=== PATIENT | female | born 1945 | race Caucasian/White ===

== ENCOUNTER → 2019-04-30 | Day surgery (SDC) | payer MEDICARE ==
[2019-04-27 14:00] LABS: BASOPHILS % 0.7 % (0.0-1.0); EOSINOPHILS # (AUTO) 0.3 (0.0-0.4); EOSINOPHILS % 4.5 % (0.0-6.0); LYMPHOCYTES # (AUTO) 0.9 (1.0-3.2); LYMPHOCYTES % 15.5 % (18.0-39.1); MEAN CORPUSCULAR HGB CONC 33.3 g/dL (31-35); MEAN CORPUSCULAR VOLUME 86.9 fL (81-99); MONOCYTES # (AUTO) 0.7 (0.2-0.8); MONOCYTES % 11.2 % (4.4-11.3); NEUTROPHILS # (AUTO) 4.1 (2.1-6.9); NEUTROPHILS % 67.6 % (38.7-80.0); PLATELET COUNT 252 x10e3/uL (140-360); RED BLOOD COUNT 4.49 x10e6/uL (3.6-5.1); RED CELL DISTRIBUTION WIDTH 14.3 % (11.7-14.4)
[~2019-04-30] MED LIST: ALDACTONE25 MG PO; ALIGN4 MG PO; ASPIR 8181 MG PO; CALCIUM500 MG PO; DICYCLOMINE HCL20 MG PO; DYMISTA NASAL S23 GM PO; FENTANYL CITRATE/PF 100MCG/2 ML INJ ONE; HYDROCHLOROTHIA25 MG PO; MULTIMINERAL PO; MULTIVITAMIN PO; OMEPRAZOLE20 M1 PO; PAROXETINE HCL20 MG PO; PROPOFOL IV EMULSION 10 MG/ML 20 ML VIAL ONE; SIMVASTATIN40 MG PO; SINGULAIR10 MG PO; SPIRONOLACTONE50 MG PO; ZESTRIL20 MG PO
--- OUTSIDE RECORDS SUMMARY | 2019-04-30 06:23 | XMS REPORT ---
[facility] Address Unknown Phone Unavailable Care Team Providers Care [employer] Name Role Phone Unavailable Unavailable Payers Payer Name Policy Type Policy Number Effective Date Expiration Date Problems This patient has no known problems. Allergies, Adverse Reactions, Alerts Allergy Name Allergy Type Status Severity Reaction(s) Onset Date Inactive Date Treating Clinician Comments No Known Allergies DA Active U 2018-09-08 00:00:00 Medications This patient has no known medications. Results Test Description Test Time Test Comments Text Results Atomic Results Result Comments SURGICAL SPECIMENS 2019-01-19 07:35:00 RUN DATE: 01/19/19 [facility] *LIVE* PAGE 1 RUN TIME: 735 Specimen Inquiry RUN USER: INTERFACE PATIENT: DONITA COOPER LOC: ADAN U #: [id number] AGE/SX: 73/F ROOM: RE01/13/19[facility] DR: Dennis Lindo MD : 45 BED: DIS: STATUS: DEP [facility] TLOC: SPEC #: [id number] RECD: 01/14/19 [facility] RE #: [id number] TONY: 01/14/[address] [facility] [address]: Dennis Lindo MD ENTERED: 01/18/19 SP TYPE: SURG SPEC OTHR DR: Venkat Jacques MD ORDERED: GM LEVEL 4 CODES: [id number] - BREAST, NOS [place]: [place] [address] [place] [address] [email or web address] Dennis Lindo MD [address] [place] [address] PROCEDURES: GM LEVEL 4 (Incomplete) TISSUES: 1. BREAST, NOS - Breast, left, lumpectomy COMMENTS No residual infiltrating ductal carcinoma is seen. Prior biopsy site changes are identified. Clinical correlation is recommended. 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 GROSS AND MICROSCOPIC GROSS EXAMINATION: Received in formalin and labeled left breast lumpectomy specimen is a segment of breast tissue with sutures marking the orientation. A single suture stout superior, long suture stout the lateral and a double suture stout the deep. The specimen is inked as follows: Lateral-green; medial-blue; superior-red; inferior-orange; anterior- yellow; posterior-black. The specimen is bread loafed in a horizontal plane from superior to inferior and submitted in its entirety for microscopic examination in its entirety (A)-(L). CONTINUED ON NEXT PAGE RUN DATE: 01/19/19 [facility] *LIVE* PAGE 2 RUN TIME: 735 Specimen Inquiry RUN USER: INTERFACE SPEC #: [id number] PATIENT: DONITA COOPER #[id number] (Continued) GROSS AND MICROSCOPIC (Continued) MICROSCOPIC EXAMINATION: Sections reveal prior biopsy site changes, fibrocystic changes, and focal abnormal cells, measuring less than 0.1 cm in largest dimension. The tumor cells are 0.1 cm from prior excisional biopsy margin and 0.8 cm from the new margin. Margins are free of tumor. Immunostaining reveals that the abnormal cells are positive for high molecular weight cytokeratin and E-cadherin. Immunostaining with myosin heavy chain and p63 demonstrates myoepithelial cells. Also present is a focus of proliferation of ductal epithelial cells. Immunostaining reveals that the cells are positive for E-cadherin and with myoepithelial staining (p63). (When special stains have been reviewed, the appropriate positive/negative controls have been reviewed and are appropriately positive/negative). POST-OP DIAGNOSIS Breast cancer, short stitch-superior, long-lateral, double-deep REVIEWED BY: RD Signed SIGNATURE ON FILE Radha Ervin MD 01/19/19 0735 END OF REPORT COMPREHENSIVE METABOLIC PANEL 2019-01-13 13:16:00 SODIUM (test code=NA) 141 mEq/L 134-147 POTASSIUM (test code=K) 3.7 mEq/L 3.4-5.0 CHLORIDE (test code=CL) 106 mEq/L 100-108 CARBON DIOXIDE (test code=CO2) 31 mEq/L 21-33 ANION GAP (test code=GAP) 8 0-20 GLUCOSE (test code=GLU) 101 mg/dL 70-110 BLOOD UREA NITROGEN (test code=BUN) 19 mg/dL 7-18 GLOMERULAR FILTRATION RATE (test code=GFR) 61.4 70-80 Units of measure=ml/min/1.73 m2 CREATININE (test code=CREAT) 0.9 mg/dL 0.6-1.3 TOTAL PROTEIN (test code=PROT) 7.9 g/dL 6.4-8.2 ALBUMIN (test code=ALB) 3.80 g/dL 3.4-5.0 CALCIUM (test code=CA) 9.5 mg/dL 8.0-10.5 BILIRUBIN TOTAL (test code=BILT) 0.50 mg/dL 0.0-1.0 SGOT/AST (test code=AST) 34 IUnit/L 15-37 SGPT/ALT (test code=ALT) 34 IUnit/L 15-65 ALKALINE PHOSPHATASE TOTAL (test code=ALKP) 50 IUnit/L 20-125 COMPREHENSIVE METABOLIC [id number] 13:13:00* Test Item Value Reference Range Comments SODIUM (test code=NA) 141 mEq/L 134-147 POTASSIUM (test code=K) 3.7 mEq/L 3.4-5.0 CHLORIDE (test code=CL) 106 mEq/L 100-108 CARBON DIOXIDE (test code=CO2) 31 mEq/L 21-33 ANION GAP (test code=GAP) 8 0-20 GLUCOSE (test code=GLU) 101 mg/dL 70-110 BLOOD UREA NITROGEN (test code=BUN) 19 mg/dL 7-18 GLOMERULAR FILTRATION RATE (test code=GFR) 61.4 70-80 Units of measure=ml/min/1.73 m2 CREATININE (test code=CREAT) 0.9 mg/dL 0.6-1.3 TOTAL PROTEIN (test code=PROT) g/dL 6.4-8.2 ALBUMIN (test code=ALB) 3.80 g/dL 3.4-5.0 CALCIUM (test code=CA) 9.5 mg/dL 8.0-10.5 BILIRUBIN TOTAL (test code=BILT) mg/dL 0.0-1.0 SGOT/AST (test code=AST) 34 IUnit/L 15-37 SGPT/ALT (test code=ALT) 34 IUnit/L 15-65 ALKALINE PHOSPHATASE TOTAL (test code=ALKP) IUnit/L 20-125 CBC W/AUTO [id number] 12:42:00* Test Item Value Reference Range Comments WHITE BLOOD CELL (test code=WBC) 7.51 x10 3/uL 4.5-11.0 RED BLOOD CELL (test code=RBC) 4.25 x10 6/uL 3.54-5.02 HEMOGLOBIN (test code=HGB) 12.7 g/dL 11.0-15.0 HEMATOCRIT (test code=HCT) 39.8 % 33.0-45.0 MEAN CELL VOLUME (test code=MCV) 93.6 fL 81.0-99.0 MEAN CELL HGB (test code=MCH) 29.9 pg 27.0-33.0 MEAN CELL HGB CONCETRATION (test code=MCHC) 31.9 g/dL 33.0-37.0 RED CELL DISTRIBUTION WIDTH CV (test code=RDW) 14.3 % 11.5-14.5 RED CELL DISTRIBUTION WIDTH SD (test code=RDW-SD) 49.8 fL 37.0-54.0 PLATELET COUNT (test code=PLT) 347 x10 3/uL 150-400 MEAN PLATELET VOLUME (test code=MPV) 10.0 fL 7.0-9.0 NEUTROPHIL % (test code=NT%) 64.7 % 56.0-77.0 IMMATURE GRANULOCYTE % (test code=IG%) 0.4 % 0.0-2.0 LYMPHOCYTE % (test code=LY%) 16.9 % 14.0-32.0 MONOCYTE % (test code=MO%) 9.9 % 4.8-9.0 EOSINOPHIL % (test code=EO%) 7.3 % 0.3-3.7 BASOPHIL % (test code=BA%) 0.8 % 0.0-2.0 NUCLEATED RBC % (test code=NRBC%) 0.0 % 0-0 NEUTROPHIL # (test code=NT#) 4.86 x10 3/uL 2.0-7.6 IMMATURE GRANULOCYTE # (test code=IG#) 0.03 x10 3/uL 0.00-0.03 LYMPHOCYTE # (test code=LY#) 1.27 x10 3/uL 1.0-3.8 MONOCYTE # (test code=MO#) 0.74 x10 3/uL 0.1-0.8 EOSINOPHIL # (test code=EO#) 0.55 x10 3/uL 0.0-0.2 BASOPHIL # (test code=BA#) 0.06 x10 3/uL 0.0-0.2 NUCLEATED RBC # (test code=NRBC#) 0.00 x10 3/uL 0.0-0.1 MANUAL DIFF REQUIRED (test code=MDIFF) NO SURGICAL [id number] 06:44:00 RUN DATE: 12/31/18 [facility] *LIVE* PAGE 1 RUN TIME: 643 Specimen Inqui ry RUN USER: INTERFACE PATIENT: DONITA COOPER ACCT #: [id number] LOC: Grace U #: [id number] AGE/SX: 73/F ROOM: RE12/25/18REG DR: Dennis Lindo MD : 45 BED: DIS: STATUS: [facility]AKOV [facility] TLOC: SPEC #: [id number] RECD: 12/26/18 STATUS: SAMY REQ #: [id number] TONY: 12/26/[address] [facility] [address]: Dennis Lindo MD ENTERED: 12/31/18 SP TYPE: SURG SPEC OTHR DR: Venkat Jacques MD ORDERED: GM LEVEL 4 CODES: [id number] - BREAST, NOS [id number] - LYMPH NODE, NOS COPIES TO: [place] [address] [place] [address] [email or web address] Dennis Lindo MD [address] [place] [address] PROCEDURE S: GM LEVEL 4 (Incomplete) TISSUES: 1. LYMPH NODE, NOS - Lymph node, l eft sentinel, excision 2. BREAST, NOS - Breast, left, lumpectomy specime n, excis 3. BREAST, NOS - Breast, left superior margin, excision 4. BREAST, NOS - Breast, left, lateral margin, excision 5. SIRIA AST, NOS - Breast, left, upper outer margin, excisi FINAL DIAGNOSIS L ymph node, left sentinel, excision: No evidence of metastatic carcinoma seen (0/4). Breast, left, lumpectomy specimen, excision: Fibrocystic changes ( see microscopic examination). Breast, left superior, lateral, upper, ou ter margins (specimens #3-#5), excision: Fibrocystic changes. GROSS AND MICROSCOPIC FROZEN DIAGNOSIS: Lymph node, left sentinel, excision: No evidenc e of metastatic carcinoma seen (0/4). GROSS DESCRIPTION: Received fresh designated left axillary sentinel node CONTINUED ON NEXT PAGE RUN DATE: 12/31/18 [facility] *LIVE* PAGE 2 RUN TIME: 0644 Specimen Inquiry RUN USER: INTERFACE SPEC #: [id number] PATIENT: DONITA COOPER #[id number] (Continued) GROSS AND MICROSCOPIC (Con tinued) are 2 segments of yellow, soft, and erasmo tissue measuring 2.5 cm and 2.2 cm in largest dimension, respectively. Four lymph nodes are identified and submitted entirely as (A) for frozen diagnosis. Received and labeled left localized lumpectomy is a breast excisional biopsy specimen that measures 4.6 x 4.3 x 1 cm Orientation is provided with t he specimen. The surgical margins are inked as follows: superior blue; inf erior green; medial red; lateral yellow; deep black, and anterior orang e. The specimen is bread loafed and reveals yellow soft tissue. Entirel y submitted (B)-(E). Specimen #3, superior margin stitch on true margin is one segment of yellow soft tissue m easuring 6 x 4.3 x 0.8 cm with a suture on one side. The suture side is inked black. Entirely submitted (F)-(J). Specimen #4, lateral margin is one segment of yellow soft tissue measuring 3.9 x 2.8 x 0.6 cm with a suture on one side for new margin. The new margin is inked black. Entirely submitted (K)-(L). Specimen #5, upper outer ma rgin is one segment of yellow soft tissue measuring 4.5 x 3.7 x 0.9 cm with a suture on one side. The new margin is inked black. Entirely submitted (M)-(P). MICROSCOPIC EXAMINATION: The sentinel lymph node reveals no evidence of metastatic carcinoma on multiple step sections and on immunostained sections (pancytokeratin and vimentin) according to protocol. Specimen #2 reveals a karlos esthetic dermatologist and fibroc ystic changes. No ADH, DCIS, LCIS, or invasive carcinoma is identified. No definite prior biopsy site changes are seen. Specimens #3-#5 reveal fibroc ystic changes. No ADH, DCIS, LCIS, or invasive carcinoma is identified. * Note: Path Dx does not coincide with clinical impression, clinical correlation is necessary. POST-OP DIAGNOSIS Breast cancer PRE-OP DIAGNOSIS Breast cancer REVIEWED BY: DR Hartman CONTINUED ON NEXT PAGE RUN DATE: 12/31/18 [facility] *LIVE* PAGE 3 RUN TIME: 643 Specimen Inquiry RUN USER: INTERFACE SPEC #: [id number] PATIENT: DONITA COOPER #[id number] (Continu ed) Signed SIGNATURE ON FILE Radha Patel MD 12/31/18 0644 END OF REPORT - SENT NODE RAD TR [id number] 10:47:00 FAX: Venkat Guevara [phone] Davin: St: REG FAX: Dennis Almazan MD [phone] Name: DONITA COOPER [facility] : 1945 Age/S: 73/F [address] [place] [address] Unit #: [id number] Loc: [place] [address] Phys: Dennis Lindo MD Acct: [id number] Dis Date: Status: REG [facility] PHONE #: [phone] Exam Date: 12/25/2018 09 FAX #: [phone] Reason: LEFT BREAST CANCER EXAMS: CPT CODE: [id number] SENT NODE RAD TR INJ 10990 Nuclear medicine sentinel node study HISTORY: Left breast cancer. FINDINGS: The injection of 1 mCi of filtered sulfur colloid was performed in the left breast under sterile conditions and local anesthesia for sentinel lymph node identification. The injection was performed at 0916 hours. No imaging was acquired. SL: [id number] at 1047 Reported and signed by: João Yost M.D. CC: Venkat Puri MD; Dennis Lindo MD Technologist: Adalgisa Fulton RT(N)(CT)(PET) Trnscrd Date/Time/By: 12/25/2018 (1040) : By: [email or web address] Orig Print D/T: S: 12/25/2018 (6927) PAGE 1 Signed Report COMPREHENSIVE METABOLIC [id number] 18:21:00* Test Item Value Reference Range Comments SODIUM (test code=NA) 139 mEq/L 134-147 POTASSIUM (test code=K) 3.4 mEq/L 3.4-5.0 CHLORIDE (test code=CL) 102 mEq/L 100-108 CARBON DIOXIDE (test code=CO2) 28 mEq/L 21-33 ANION GAP (test code=GAP) 12 0-20 GLUCOSE (test code=GLU) 88 mg/dL 70-110 BLOOD UREA NITROGEN (test code=BUN) 20 mg/dL 7-18 GLOMERULAR FILTRATION RATE (test code=GFR) 61.4 70-80 Units of measure=ml/min/1.73 m2 CREATININE (test code=CREAT) 0.9 mg/dL 0.6-1.3 TOTAL PROTEIN (test code=PROT) 7.5 g/dL 6.4-8.2 ALBUMIN (test code=ALB) 3.50 g/dL 3.4-5.0 CALCIUM (test code=CA) 9.4 mg/dL 8.0-10.5 BILIRUBIN TOTAL (test code=BILT) 0.40 mg/dL 0.0-1.0 SGOT/AST (test code=AST) 19 IUnit/L 15-37 SGPT/ALT (test code=ALT) 24 IUnit/L 15-65 ALKALINE PHOSPHATASE TOTAL (test code=ALKP) 53 IUnit/L 20-125 COMPREHENSIVE METABOLIC [id number] 18:07:00* Test Item Value Reference Range Comments SODIUM (test code=NA) 139 mEq/L 134-147 POTASSIUM (test code=K) 3.4 mEq/L 3.4-5.0 CHLORIDE (test code=CL) 102 mEq/L 100-108 CARBON DIOXIDE (test code=CO2) 28 mEq/L 21-33 ANION GAP (test code=GAP) 12 0-20 GLUCOSE (test code=GLU) 88 mg/dL 70-110 BLOOD UREA NITROGEN (test code=BUN) 20 mg/dL 7-18 GLOMERULAR FILTRATION RATE (test code=GFR) 61.4 70-80 Units of measure=ml/min/1.73 m2 CREATININE (test code=CREAT) 0.9 mg/dL 0.6-1.3 TOTAL PROTEIN (test code=PROT) g/dL 6.4-8.2 ALBUMIN (test code=ALB) 3.50 g/dL 3.4-5.0 CALCIUM (test code=CA) 9.4 mg/dL 8.0-10.5 BILIRUBIN TOTAL (test code=BILT) mg/dL 0.0-1.0 SGOT/AST (test code=AST) IUnit/L 15-37 SGPT/ALT (test code=ALT) IUnit/L 15-65 ALKALINE PHOSPHATASE TOTAL (test code=ALKP) IUnit/L 20-125 CBC W/AUTO [id number] 17:27:00* Test Item Value Reference Range Comments WHITE BLOOD CELL (test code=WBC) 8.72 x10 3/uL 4.5-11.0 RED BLOOD CELL (test code=RBC) 3.71 x10 6/uL 3.54-5.02 HEMOGLOBIN (test code=HGB) 11.2 g/dL 11.0-15.0 HEMATOCRIT (test code=HCT) 35.0 % 33.0-45.0 MEAN CELL VOLUME (test code=MCV) 94.3 fL 81.0-99.0 MEAN CELL HGB (test code=MCH) 30.2 pg 27.0-33.0 MEAN CELL HGB CONCETRATION (test code=MCHC) 32.0 g/dL 33.0-37.0 RED CELL DISTRIBUTION WIDTH CV (test code=RDW) 16.9 % 11.5-14.5 RED CELL DISTRIBUTION WIDTH SD (test code=RDW-SD) 58.1 fL 37.0-54.0 PLATELET COUNT (test code=PLT) 403 x10 3/uL 150-400 MEAN PLATELET VOLUME (test code=MPV) 9.8 fL 7.0-9.0 NEUTROPHIL % (test code=NT%) 58.2 % 56.0-77.0 IMMATURE GRANULOCYTE % (test code=IG%) 0.8 % 0.0-2.0 LYMPHOCYTE % (test code=LY%) 15.4 % 14.0-32.0 MONOCYTE % (test code=MO%) 11.0 % 4.8-9.0 EOSINOPHIL % (test code=EO%) 13.6 % 0.3-3.7 BASOPHIL % (test code=BA%) 1.0 % 0.0-2.0 NUCLEATED RBC % (test code=NRBC%) 0.0 % 0-0 NEUTROPHIL # (test code=NT#) 5.07 x10 3/uL 2.0-7.6 IMMATURE GRANULOCYTE # (test code=IG#) 0.07 x10 3/uL 0.00-0.03 LYMPHOCYTE # (test code=LY#) 1.34 x10 3/uL 1.0-3.8 MONOCYTE # (test code=MO#) 0.96 x10 3/uL 0.1-0.8 EOSINOPHIL # (test code=EO#) 1.19 x10 3/uL 0.0-0.2 BASOPHIL # (test code=BA#) 0.09 x10 3/uL 0.0-0.2 NUCLEATED RBC # (test code=NRBC#) 0.00 x10 3/uL 0.0-0.1 MANUAL DIFF REQUIRED (test code=MDIFF) NO - XR CHEST 2 [id number] 16:47:00 FAX: Venkat Guevara [phone] Davin: St: PRE FAX: Dennis Almazan MD [phone] Name: DONITA COOPER [facility] : 1945 Age/S: 73/F [address] [place] [address] Unit #: [id number] [facility] [place] [address] Phys: Dennis Lindo MD Acct: [id number] Dis Date: Status: PRE [facility] [place] [facility] PHONE #: [phone] Exam Date: 12/22/2018 1644 FAX #: [phone] Reason: WIRE LOC, SN BIOPSY OF BREAST EXAMS: CPT CODE: [id number] XR CHEST 2 V 28944 Clinical Indication: WIRE LOC, SN BIOPSY OF BREAST Comparison: 09/10/2018 FINDINGS: The frontal and lateral chest radiographs show normal lung volumes. No interstitial or airspace opacities are seen. No pleural effusions are present. No pneumothorax is seen. The heart is normal in size. The trachea is midline. The tip of the right sided Port-A-Cath is in the SVC. A radiopaque ring projects over the epigastric. There are no clinically significant osseous abnormalities noted. IMPRESSION: No chest radiographic evidence of acute cardiopulmonary disease. SL: [id number] at 3716 Reported and signed by: Ion Ford M.D. CC: Venkat Puri MD; Dennis Lindo MD Technologist: RT Topher(Alex)(Juan) Trnscrd Date/Time/By: 12/22/2018 (8300) : By: [email or web address] Orig Print D/T: S: 12/22/2018 (5548) PAGE 1 Signed Report SURGICAL [id number] 08:09:00 RUN DATE: 09/12/18 [facility] *LIVE* PAGE 1 RUN TIME: 808 Specimen Inqui ry RUN USER: INTERFACE PATIENT: DONITA COOPER ACCT #: [id number] LOC: JACINDA Martinez #: [id number] AGE/SX: 73/F ROOM: RE09/08/18REG DR: Dennis Lindo MD : 45 BED: DIS: STATUS: PRE REF TLOC: SPEC #: [id number] RECD: 09/09/18 STATUS: [facility]Y REQ #: [id number] TONY: 09/09/[address] [facility] [address]: Dennis Lindo MD ENTERED: 09/10/18 SP TYPE: SURG SPEC OTHR DR: Sheila Nano ashley or Family PhysicianORDERED: LEVEL 4 CODES: [id number] - LYMPH NODE, NOS COPIES TO: No Primary or Family Physician Dennis Lindo MD [address] [place] [address] PROCEDURES: GM LEVEL 4 (Incomplete) TISSUES: 1. LYMPH NODE, NOS - Lymph node, left axilla, core bx. FINAL DIAGNOSIS Lymph node, left axilla, core bx.: Lymph node tissue showi ng reactive changes; no evidence of metastatic carcinoma seen. GROSS AND MICROSCOPIC GROSS EXAMINATION: Location: Lymph node, left axilla, core bx. Dimensions and appearance: 0.6 x 0.5 x 0.1 cm, fibrofatty. Sections: Entirely submitted. Received in formalin are the above designated biopsies. They are composed of yellow-white fibrofatty tissue. They are submitted for microscopic examination as indicated above. MICROSCOPIC EXAMINATION: Sections reveal small fragments of lymph node ti ssue showing reactive changes. No evidence of metastatic carcinoma is seen . P OST-OP DIAGNOSIS ULTRACLIP-ribbon CONTIN UED ON NEXT PAGE RUN DATE: 09/12/18 [facility] *LIVE* PAGE 2 RUN TIME: 808 Specimen Inquiry RUN USER: INTERFACE SPEC #: [id number] [facility]: DONITA COOPER #[id number] (Continued) PRE-OP DIAGNOSIS Lymph node REVIEWED BY: XR S igned SIGNATURE ON FILE Radha Ervin MD 09/12/18 0809 END OF REPORT - XR FLUOROSCOPY 0-60 [id number] 12:13:00 FAX: Venkat Gueavra [phone] Davin: St: REG FAX: Bhaskar [place],In Radha DARDEN [phone] Name: DONITA COOPER [facility] [place] : 1945 Age/S: 73/F [address] [place] [address] Unit #: [id number] Loc: [place] [address] Phys: Preet,Bianca Garcia MD Acct: [id number] Dis Date: Status: REG [facility] [facility] PHONE #: [phone] Exam Date: 09/10/2018909 FAX #: [phone] Reason: LEFT BREAST CANCER EXAMS: CPT CODE: [id number] XR FLUOROSCOPY 0-60 MIN 70250 XR FLUOROSCOPY 0-60 MIN.: Fluoroscopic guidance was provided by the radiology department for intraoperative procedure. Any images obtained will be interpreted by the performing physician. at 1213 Reported and signed by: Juan J Parish M.D. CC: Venkat Puri MD; In Radha Yo Technologist: RT Raul(R) Trnscrd Date/Time/By: 09/10/2018 (2523) : By: [email or web address] Orig Print D/T: S: 09/10/2018 (9025) PAGE 1 Signed Report - XR CHEST 1 [id number] 11:54:00 FAX: Venkat Guevara [phone] Davin: St: REG FAX: Bhaskar [place],In Radha DARDEN [phone] Name: DONITA COOPER : 1945 Age/S: 73/F [address] [place] [address] Unit #: [id number] Loc: [place] [address] Phys: Yo,In Radha DARDEN Acct: [id number] Dis Date: Status: REG SDC PHONE #: [phone] Exam Date: 09/10/2018 1116 FAX #: [phone] Reason: port placement EXAMS: CPT CODE: [id number] XR CHEST 1 V 97061 CHEST, SINGLE VIEW HISTORY: Port-A-Cath placement Comparison made to prior chest x-ray dated 09/08/18. FINDINGS: The lungs are clear. The heart size and pulmonary vas cularity are within normal limits. No pneumothorax. Right IJ chest port position is adequate. IMPRESSION: Adequa te positioning of right IJ central venous port, no pneumothorax. Otherw ise stable. SL:01 at 1 154 Reported and signed by: Ant guillaume M.D. CC: Venkat Puri MD; In Radha Oviedo Technologist: RT Kulwinder(Sara vicente Date/Time/By: 09/10/2018 (1154) : By: Roz Orig Print D/T: S: 09/10/2018 (3008) PAGE 1 Signed Report DRUGS OF ABUSE SCREEN [id number] 13:05:00 * Test Item Value Reference Range Comments URN COCAINE (test code=COCAURN) NEGATIVE NEGATIVE URN CANNABINOIDS (test code=CANNABURN) NEGATIVE NEGATIVE URN AMPHETAMINE (test code=AMPHETURN) NEGATIVE NEGATIVE URN BARBITURATE (test code=BARBITURN) NEGATIVE NEGATIVE URN BENZODIAZEPINE (test code=BENZOURN) NEGATIVE NEGATIVE Cut-off value:200 ng/mL URN OPIATES (test code=OPIATURN) NEGATIVE NEGATIVE Cut-off value:2000 ng/mL URN PHENCYCLIDINE (PCP) (test code=PHENCURN) NEGATIVE NEGATIVE Cutoffs:Barbiturates 200 ng/mLBenzodiazepines 200 ng/mLTHC Cannabinoids 50 ng/mLOpiates(Morphine) 2000 ng/mLAmphetamine 1000 ng/mLCocaine 300 ng/mLPCP phencyclidine 25 ng/mL Unconfirmed screening results shouldnot be used for non-medical purposes. COMPREHENSIVE METABOLIC [id number] 12:54:00* Test Item Value Reference Range Comments SODIUM (test code=NA) 136 mEq/L 134-147 POTASSIUM (test code=K) 3.4 mEq/L 3.4-5.0 CHLORIDE (test code=CL) 100 mEq/L 100-108 CARBON DIOXIDE (test code=CO2) 31 mEq/L 21-33 ANION GAP (test code=GAP) 8 0-20 GLUCOSE (test code=GLU) 99 mg/dL 70-110 BLOOD UREA NITROGEN (test code=BUN) 14 mg/dL 7-18 GLOMERULAR FILTRATION RATE (test code=GFR) 70.3 70-80 Units of measure=ml/min/1.73 m2 CREATININE (test code=CREAT) 0.8 mg/dL 0.6-1.3 TOTAL PROTEIN (test code=PROT) 8.2 g/dL 6.4-8.2 ALBUMIN (test code=ALB) 4.00 g/dL 3.4-5.0 CALCIUM (test code=CA) 9.3 mg/dL 8.0-10.5 BILIRUBIN TOTAL (test code=BILT) 0.40 mg/dL 0.0-1.0 SGOT/AST (test code=AST) 22 IUnit/L 15-37 SGPT/ALT (test code=ALT) 24 IUnit/L 15-65 ALKALINE PHOSPHATASE TOTAL (test code=ALKP) 56 IUnit/L 20-125 COMPREHENSIVE METABOLIC [id number] 12:52:00* Test Item Value Reference Range Comments SODIUM (test code=NA) 136 mEq/L 134-147 POTASSIUM (test code=K) 3.4 mEq/L 3.4-5.0 CHLORIDE (test code=CL) 100 mEq/L 100-108 CARBON DIOXIDE (test code=CO2) 31 mEq/L 21-33 ANION GAP (test code=GAP) 8 0-20 GLUCOSE (test code=GLU) 99 mg/dL 70-110 BLOOD UREA NITROGEN (test code=BUN) 14 mg/dL 7-18 GLOMERULAR FILTRATION RATE (test code=GFR) 70.3 70-80 Units of measure=ml/min/1.73 m2 CREATININE (test code=CREAT) 0.8 mg/dL 0.6-1.3 TOTAL PROTEIN (test code=PROT) g/dL 6.4-8.2 ALBUMIN (test code=ALB) 4.00 g/dL 3.4-5.0 CALCIUM (test code=CA) 9.3 mg/dL 8.0-10.5 BILIRUBIN TOTAL (test code=BILT) mg/dL 0.0-1.0 SGOT/AST (test code=AST) 22 IUnit/L 15-37 SGPT/ALT (test code=ALT) 24 IUnit/L 15-65 ALKALINE PHOSPHATASE TOTAL (test code=ALKP) IUnit/L 20-125 - XR CHEST 2 [id number] 12:34:00 FAX: Venkat Guevara [phone] Davin: St: PRE FAX: Bianca Yoon MD [phone] Name: DONITA COOPER [facility] : 1945 Age/S: 73/F [address] [place] [address] Unit #: [id number] Loc: [place] [address] Phys: Bianca Oviedo MD Acct: [id number] Dis Date: Status: PRE [facility] [place] PHONE #: [phone] Exam Date: 09/08/2018 1234 FAX #: [phone] Reason: PORT PLACEMENT EXAMS: CPT CODE: [id number] XR CHEST 2 V 30653 CHEST RADIOGRAPHS - PA AND LATERAL: COMPARISON: None CLINICAL HISTORY: PORT PLACEMENT The cardiopericardial silhouette is within normal limits. No acute infiltrate is present. There is a 5 mm calcified granuloma in the right lower lobe. A oval metallic ringlike device is present in the left upper quadrant of the abdomen near the level of the GE junction. No vascular congestion or pneumothorax. IMPRESSION: No acute pulmonary abnormality. at 1234 Reported and signed by: aWldo Ray M.D. CC: Venkat Puri MD; [facility] Technologist: RT Aminata(Alex) Trnscrd Date/Time/By: 09/08/2018 (123) : By: [email or web address] Orig Print D/T: S: 09/08/2018 (6216) PAGE 1 Signed Report CBC W/AUTO [id number] 12:31:00* Test Item Value Reference Range Comments WHITE BLOOD CELL (test code=WBC) 9.47 x10 3/uL 4.5-11.0 RED BLOOD CELL (test code=RBC) 4.45 x10 6/uL 3.54-5.02 HEMOGLOBIN (test code=HGB) 12.9 g/dL 11.0-15.0 HEMATOCRIT (test code=HCT) 40.1 % 33.0-45.0 MEAN CELL VOLUME (test code=MCV) 90.1 fL 81.0-99.0 MEAN CELL HGB (test code=MCH) 29.0 pg 27.0-33.0 MEAN CELL HGB CONCETRATION (test code=MCHC) 32.2 g/dL 33.0-37.0 RED CELL DISTRIBUTION WIDTH CV (test code=RDW) 13.2 % 11.5-14.5 RED CELL DISTRIBUTION WIDTH SD (test code=RDW-SD) 43.0 fL 37.0-54.0 PLATELET COUNT (test code=PLT) 299 x10 3/uL 150-400 MEAN PLATELET VOLUME (test code=MPV) 10.1 fL 7.0-9.0 NEUTROPHIL % (test code=NT%) 66.7 % 56.0-77.0 IMMATURE GRANULOCYTE % (test code=IG%) 0.7 % 0.0-2.0 LYMPHOCYTE % (test code=LY%) 22.3 % 14.0-32.0 MONOCYTE % (test code=MO%) 7.7 % 4.8-9.0 EOSINOPHIL % (test code=EO%) 2.1 % 0.3-3.7 BASOPHIL % (test code=BA%) 0.5 % 0.0-2.0 NUCLEATED RBC % (test code=NRBC%) 0.0 % 0-0 NEUTROPHIL # (test code=NT#) 6.31 x10 3/uL 2.0-7.6 IMMATURE GRANULOCYTE # (test code=IG#) 0.07 x10 3/uL 0.00-0.03 LYMPHOCYTE # (test code=LY#) 2.11 x10 3/uL 1.0-3.8 MONOCYTE # (test code=MO#) 0.73 x10 3/uL 0.1-0.8 EOSINOPHIL # (test code=EO#) 0.20 x10 3/uL 0.0-0.2 BASOPHIL # (test code=BA#) 0.05 x10 3/uL 0.0-0.2 NUCLEATED RBC # (test code=NRBC#) 0.00 x10 3/uL 0.0-0.1 MANUAL DIFF REQUIRED (test code=MDIFF) NO BREAST ULTRASOUND CORE BIOPSY [id number] 16:48:41- BREAST ULTRASOUND CORE BIOPSY LEFTULTRASOUND GUIDED BIOPSY LEFT BREAST WITH MARKING DEVICE INSERTED: 08/01/2018CLINICAL: Ultrasound biopsy, left breast. Comparison is made to exams dated 07/23/2018 ultrasound and 07/23/2018 mammogram - [facility]-. An ultrasound guided biopsy using real-time ultrasound was performed for the 1.3 cm mass located in the left breast at 11 o'clock, 6 cm from the nipple. The skin was prepped in the usual manner. Local anesthetic was administered to the access site. A 14 gauge biopsy needle was placed adjacent to the abnormality under ultrasound guidance. Once the needle was documented to be in the correct location, multiple specimens were obtained using a BARD biopsy device. A clip was inserted into the biopsy cavity. The specimens were sent to the laboratory for pathological analysis. IMPRESSION: ULTRASOUND GUIDED BIOPSY MALIGNANT Ultrasound guided biopsy of the 1.3 cm mass in the left breast at 11 o'clock, 6 cm from the nipple, was successful with no apparent post procedure complications. PATHOLOGY INDICATES:Malignant invasive ductal carcinoma. Susanna Merida M.D. dm/:08/06/2018 16:48:41 Entry: - 08/07/2018 06:48:26Imaging Technologist: Yoli Madden FW, [facility]-DIAG MAMM LEFT CAD [id number] 09:38:54 - DIAG MAMM LEFT CAD DIGITALUNILATERAL LEFT DIGITAL DIAGNOSTIC MAMMOGRAM WITH CAD POST-PROCEDURE IMAGING FOR MARKER PLACEMENT: 08/01/2018CLINICAL: Post clip placement. Current mammographic images were evaluated by either a [employer] M-Vu or a [employer] ImageNegevtechcker CAD (computer aided detection system). Comparison is made to exams dated 07/21/2018 mammogram, 06/24/2017 mammogram, and [facility] There are scattered fibroglandular tissues in the left breast. There is a marker clip in the appropriate position in the left breast at 11 o'clock. This marker clip placement is at the biopsy site. IMPRESSION: POST PROCEDURE IMAGING FOR MARKER PLACEMENTThere was a successful marker clip placement in the left breast. Susanna Merida M.D. dm/:08/01/2018 09:38:54 Ssn/Ssbn Weapons Equipment Operator: Sobeida Booker FW, [facility]-Mammogram BI-RADS: Post- procedure mammogram for marker placementDIAG MAMM RIGHT RADHAMES CAD DIGITAL 2018-07-23 16:15:46 - DIAG MAMM RIGHT RADHAMES CAD DIGITALUNILATERAL RIGHT DIGITAL DIAGNOSTIC MAMMOGRAM 3D/2D WITH CAD: 07/23/2018CLINICAL: Recall from screening. Digital breast tomosynthesis was performed in addition to routine CC and MLO views. Current mammographic images were evaluated by either a [employer] M-Vu or a [employer] CAD (computer aided detection system). Comparison is made to exams dated 07/21/2018 mammogram, 06/24/2017 mammogram, and [facility]03/[facility]. There are scattered fibroglandular tissues in the right breast. Previously described focal asymmetry does not persist on additional spot compression views consistent with superimposition of breast tissue. No suspicious mass, architectural distortion, malignant type calcification, or lymph node abnormality detected in the right breast. IMPRESSION: INCOMPLETE ASSESSMENT: ADDITIONAL IMAGING EVALUATION RECOMMENDEDThere is no mammographic evidence of malignancy in the right breast. Targeted left breast ultrasound for left breast mass and bilateral survey ultrasound to follow.Luke Jimenez M.D. ss/:07/23/2018 16:15:46 Entry: - 07/24/2018 12:02:34Imaging Technologist: Sobeida LANE, [facility] BI-RADS: 0 IndeterminateBREAST ULTRASOUND BILATERAL 2018-07-23 16:05:00- BREAST ULTRASOUND BILATERALULTRASOUND OF BOTH BREASTS: 07/23/2018Comparison is made to exams dated 07/21/2018 mammogram, 06/24/2017 mammogram, and 05/03/2016 [facility]. Color flow and real-time ultrasound of both breasts were performed. Cruz scale images of the real-time examination were reviewed. The breast tissue has homogenous fatty background echotexture. Targeted left breast ultrasound demonstrates a solid mass that measures 13 x 10 x 11 mm at 11 o'clock, 6 cm from nipple, correlating with the mammographic mass. Characteristics include oval shape, irregular margins, parallel orientation, posterior acoustic enhancement, no internal vascularity. A simple cyst is noted in the right breast at 12 o'clock, 4 cm from the nipple. The rest of the bilateral survey ultrasound is negative. Atleast two left axillary lymph nodes with asymmetrically thickened cortex in the left axilla is identified. No right axillary lymphadenopathy.IMPRESSION: HIGHLY SUGGESTIVE OF MALIGNANCY - FOLLOW-UP RECOMMENDED1. Solid hypoechoic mass in the left breast at 11 o'clock. Findings are highly concerning for malignancy, BI-RADS 5. Ultrasound guided core biopsy is recommended at this time.2. Left axillary lymph nodes with asymmetrically thickened cortex. BI- RADS 4C. Ultrasound guided core biopsy is recommended at this time.Luke Jimenez M.D. ss/:07/23/2018 16:05:00 Entry: [facility] 07/24/2018 12:03:49Imaging Technologist: Sobeida LANE, [facility]letter sent: BIRADS 4/5 Biopsy Ultrasound BI-RADS: 5 Highly suggestive of malignancySCR MAMM BILATERAL RADHAMES CAD [id number] 16:13:23 - SCR MAMM BILATERAL RADHAMES CAD DIGITALBILATERAL DIGITAL SCREENING MAMMOGRAM 3D/2D WITH CAD: 07/21/2018CLINICAL: Asymptomatic. Digital breast tomosynthesis was performed in addition to routine CC and MLO views. Current mammographic images were evaluated by either a [employer] M-Vu or a [employer] ImageChecker CAD (computer aided detection system). Comparison is made to exams dated 06/24/2017 mammogram, 05/03/2016 mammogram, and 05/02/2015 mammogram - [facility]. There are scattered fibroglandular tissues in both breasts. A 12 mm obscured margin equal density mass at 11/12 o'clock, approximately 6 cm from the nipple, in the left breast. A 4 mm focal asymmetry in the right breast at 12 o'clock, approximately 5 cm from the nipple, appears possibly stable since prior mammograms.IMPRESSION: INCOMPLETE ASSESSMENT: ADDITIONAL IMAGING EVALUATION RECOMMENDED1. A 12 mm obscured margin equal density mass at 11/12 o'clock, approximately 6 cm from the nipple, in the left breast. Ultrasound is recommended at this time.2. A 4 mm focal asymmetry in the right breast at 12 o'clock, approximately 5 cm from the nipple, appears possibly stable since prior mammograms when accounting for diff erences in technique. At this time, spot compression radhames synthesis and possibl e ultrasound is recommended.Luke Jimenez M.D. ss/:07/21/2018 16:13: 23 Ssn/Ssbn Weapons Equipment Operator: Sobeida LANE, [facility]FWletter sent: Additional Imaging Mammogram BI-RADS: 0 Indeterminate
--- OUTSIDE RECORDS SUMMARY | 2019-04-30 06:23 | XMS REPORT | Encounter Summary ---
Author Organization Unknown Address [address] [place] [address] Phone [phone] Care Team Providers Care Private Branch Exchange Installer Name Role Phone Dr. Venkat Lynch 3 [phone] Jhony Green 62 [phone] Alexis Malhotra MD 104 [phone] Michelle Dickerson MD 105 [phone] Jean Varela MD 107 [phone] Patty Gil 110 [phone] [facility] 111 [phone] Wang Valdez MD (Endocrinology) 119 [phone] Jimmy Allred MD 130 [phone] Reason for Visit Hypertensive disorder; Depressive disorder; Hyperlipidemia Instructions 1. Hyperlipidemia high cholesterol: care instructions simvastatin 40 mg tablet CMP, serum or plasma lipid panel, serum 2. Hypertensive disorder hydrochlorothiazide 25 mg tablet CBC w/ auto diff 3. Major depressive disorder paroxetine 20 mg tablet 4. Senile purpura 5. Screening for malignant neoplasm of breast MAMMO, screening, digital, bilateral 6. Body mass index 25-29 - overweight learning about healthy weight Discussion Note: None recorded. Plan of Care Reminders Provider Appointments Return to Office on or around 01/04/2019 Venkat Puri MD Lab CMP, Serum or Plasma 07/08/[address] [facility] Lipid Panel, Serum 07/08/[address] [facility] CBC W/ Auto Diff 07/08/[address] [facility] Laboratory Referral None recorded. Procedures None recorded. Surgeries None recorded. Imaging MAMMO, Screening, Digital, Bilateral 07/08/2018 [facility] Medications Name Start Date Asmanex Twisthaler 220 mcg (120 doses) breath activated Inhale 2 puffs twice a day by inhalation route. Aspir-81 QD Calcium 500 3 gummies daily dicyclomine 20 mg tablet Take 1 tablet twice a day by oral route for 90 days. Dymista 137 mcg-50 mcg/spray nasal spray 1 spray each nostril twice a day hydrochlorothiazide 25 mg tablet TAKE 1 TABLET DAILY DIRECTED hydrocodone 5 mg-acetaminophen 325 mg tablet as needed (for knee) montelukast 10 mg tablet Take 1 tablet every day by oral route for 90 days. Multivitamin 50 Plus tablet Take 1 tablet every day by oral route. paroxetine 20 mg tablet TAKE 1 TABLET DAILY DIRECTED ProAir HFA 90 mcg/actuation aerosol inhaler 2 puffs qid as needed simvastatin 40 mg tablet TAKE 1 TABLET DAILY spironolactone 50 mg tablet Take 1 tablet every day by oral route for 90 days. Medications Administered None recorded. Vitals Height Weight BMI Blood Pressure 5 ft 6.6 in 179 lbs 28.4 kg/m2 124/76 mm[Hg] Lab Results None recorded. Allergies Code Code System Name Reaction Severity Status Onset NKDA Problems Name Status Onset Date Source Hypertensive Disorder Active 03/05/2016 Anxiety Active 08/09/2016 Depressive Disorder Active 08/09/2016 Asthma Active 08/09/2016 Alopecia Active 08/09/2016 Hyperlipidemia Active Procedures Date Name Performed by 02/15/2018 Esophageal Hiatus Hernia Repair Information not available 06/17/2017 Orthopedic Surgery Information not available 06/17/1976 Hysterectomy (Partial) Information not available 06/17/1974 Tubal Ligation Information not available 07/08/2018 MAMMO, Screening, Digital, Bilateral [facility] [address] [place] [address] (Work Place) Vaccine List Vaccine Type influenza, injectable, quadrivalent 02/15/2015 influenza, unspecified formulation 02/15/2018 pneumococcal conjugate PCV 13 01/03/20170.5 mL pneumococcal polysaccharide PPV23 01/16/20180.5 mL pneumococcal, unspecified formulation 06/17/2005 zoster 06/17/2009 zoster subunit 11/29/2017 04/17/2018 Social History Smoking Status Never Smoker Past Encounters 07/08/2018 Hyperlipidemia; Hypertensive Disorder; Major Depressive Disorder; Senile Purpura; Screening for Malignant Neoplasm of Breast; Body Mass Index 25-29 - Overweight Venkat Puri MD: [address] [place] [address], Ph. History of Present Illness Note:F/u on chronic conditions. Needs refill in meds. Compliant with meds. Non compliant with diet or exercise. BPs at home 120s/80s. No side effects with meds. No new symptoms. Denies restlessness, nervousness, sadness, suicidal/homicidal thoughts. Review of Systems Comprehensive General Adult ROS Reported By: Patient Constitutional: Constitutional: no fever Eyes: Eyes: no vision change ENMT: Ears: no ear pain. Nose: no sinus problems. Mouth/Throat: no sore throat Cardiovascular: Cardiovascular: no chest pain, no palpitations, no lightheadedness Respiratory: Respiratory: no cough, no wheezing, no shortness of breath Gastrointestinal: Gastrointestinal: no abdominal pain, no nausea, no vomiting, no constipation, no diarrhea Musculoskeletal: Musculoskeletal: no muscle aches, no muscle weakness, no swelling in the extremities Integumentary: Skin: no rashes Neurologic: Neurologic: no loss of consciousness, no headaches Psychiatric: Psych: no depression, no alcohol abuse, no anxiety, no suicidal thoughts Endocrine: Endocrine: no fatigue Physical Exam General Adult Exam (male) Reported By: Patient Constitutional: General Appearance: healthy-appearing, overweight. Level of Distress: NAD. Ambulation: ambulating normally Psychiatric: Insight: good judgement. Mental Status: active and alert, normal mood, normal affect. Orientation: to time, to place, to person. Memory: recent memory normal, remote memory normal Eyes: Lids and Conjunctivae: non-injected, no discharge. EOM: EOMI ENMT: Ears: TMs clear. Nose: no sinus tenderness. Lips, Teeth, and Gums: no mouth or lip ulcers. Oropharynx: moist mucous membranes Neck: Neck: supple, trachea midline. Thyroid: no enlargement, non-tender Lungs: Auscultation: breath sounds normal Cardiovascular: Heart Auscultation: RRR, normal S1, normal S2, no murmurs. Neck vessels: no carotid bruits. Pulses including femoral / pedal: normal throughout Abdomen: Inspection and Palpation: soft, non-distended, no tenderness, no guarding Musculoskeletal:: Motor Strength and Tone: normal, normal tone. Joints, Bones, and Muscles: normal movement of all extremities, no contractures, no bony abnormalities, no malalignment, no tenderness. Extremities: no edema Neurologic: Gait and Station: normal gait. Cranial Nerves: grossly intact. Coordination and Cerebellum: no tremor Skin: Inspection and palpation: ; ecchymoses in forearms
--- OUTSIDE RECORDS SUMMARY | 2019-04-30 06:24 | XMS REPORT | Encounter Summary ---
Author Organization Unknown Address [address] [place] [address] Phone [phone] Care Team Providers Care Clothes Ironer Name Role Phone Dr. Venkat Lynch 3 [phone] Jhony Green 62 [phone] Dirk Lindo MD 102 [phone] Alexis Malhotra MD 104 [phone] Michelle Dickerson MD 105 [phone] Jean Varela MD 107 [phone] [facility] 111 [phone] Wang Valdez MD (Endocrinology) 119 [phone] Jimmy Allred MD 130 [phone] Timoteo Ribera MD 197 [phone] Reason for Visit AWV Annual Wellness Visit Female (VFP); Annual Alcohol Misuse Screening Instructions 1. Adult health examination 2. Depression screening 3. Alcohol consumption screening learning about alcohol misuse 4. Body mass index 25-29 - overweight learning about healthy weight 5. 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 Hyperlipidemia high cholesterol: care instructions CMP, serum or plasma lipid panel, serum 8. Hypertensive disorder 9. Major depressive disorder 10. Loss of hair Discussion Note: None recorded. Plan of Care Reminders Provider Appointments Est Patient 04/30/2019 9:00AM Venkat Puri MD Lab CMP, Serum or Plasma 01/29/2019 [facility] Laboratory Lipid Panel, Serum 01/29/2019 [facility] Laboratory Referral None recorded. Procedures None recorded. Surgeries None recorded. Imaging None recorded. Medications Name Start Date QD Calcium 500 3 gummies daily gabapentin 300 mg capsule Take 1 capsule 3 times a day by oral route. hydrochlorothiazide 25 mg tablet TAKE 1 TABLET DAILY DIRECTED hydrocodone 5 mg-acetaminophen 325 mg tablet as needed (for knee) montelukast 10 mg tablet Take 1 tablet every day by oral route for 90 days. Multivitamin 50 Plus tablet Take 1 tablet every day by oral route. paroxetine 20 mg tablet TAKE 1 TABLET DAILY DIRECTED simvastatin 40 mg tablet TAKE 1 TABLET DAILY spironolactone 50 mg tablet Take 1 tablet every day by oral route for 90 days. Medications Administered None recorded. Vitals Height Weight BMI Blood Pressure 5 ft 6.6 in 181.6 lbs 28.8 kg/m2 112/72 mm[Hg] Lab Results None recorded. Allergies Code Code System Name Reaction Severity Status Onset NKDA Problems Name Status Onset Date Source Hypertensive Disorder Active 03/05/2016 Anxiety Active 08/09/2016 Depressive Disorder Active 08/09/2016 Asthma Active 08/09/2016 Alopecia Active 08/09/2016 Neoplasm of Breast Active 01/29/2019 Hyperlipidemia Active Procedures Date Name Performed by 02/15/2018 Esophageal Hiatus Hernia Repair Information not available 06/17/2017 Orthopedic Surgery Information not available 06/17/1976 Hysterectomy (Partial) Information not available 06/17/1974 Tubal Ligation Information not available Vaccine List Vaccine Type influenza, injectable, quadrivalent 02/15/2015 influenza, unspecified formulation 02/15/2018 pneumococcal conjugate PCV 13 01/03/20170.5 mL pneumococcal polysaccharide PPV23 01/16/20180.5 mL pneumococcal, unspecified formulation 06/17/2005 zoster 06/17/2009 zoster subunit 11/29/2017 04/17/2018 Social History Tobacco Smoking Status Never Smoker Past Encounters 01/29/2019 Adult Health Examination; Depression Screening; Alcohol Consumption Screening; Body Mass Index 25-29 - Overweight; Neoplasm of Breast; Polyneuropathy Due to Drug; Hyperlipidemia; Hypertensive Disorder; Major Depressive Disorder; Loss of Hair Venkat Puri MD: [address] [place] [phone], Ph. History of Present Illness Mini Cog Reported By: Patient Functional Ability: Personal/Social/ Draw a clock and write in the numbers in the correct place, and set the time to 10 minutes after 11 o'clock was completed correctly? Yes, 3 word recall: Your nurse or doctor will ask you to remember 3 words. In 5 minutes, they will ask you to repeat them. Patient recalled 3 words Opioid Use Assessment Reported By: Patient Opioid Use Assessment:: Current Use of Opioids : Hydromorphone (Dilaudid). Has the patient tried other pain management modalities: yes Review of Systems Comprehensive General Adult ROS [...] normal Eyes: Lids and Conjunctivae: non-injected, no discharge ENMT: Ears: TMs clear. Nose: no sinus tenderness. Lips, Teeth, and Gums: no mouth or lip ulcers. Oropharynx: moist mucous membranes Neck: Neck: supple, trachea midline. Thyroid: no enlargement, non-tender Lungs: Auscultation: breath sounds normal Cardiovascular: Heart Auscultation: RRR, normal S1, normal S2, no murmurs. Neck vessels: no carotid bruits Abdomen: Inspection and Palpation: soft, non-distended, no tenderness, no guarding Musculoskeletal:: Motor Strength and Tone: normal, normal tone. Joints, Bones, and Muscles: normal movement of all extremities, no contractures, no bony abnormalities, no malalignment, no tenderness. Extremities: no edema Neurologic: Gait and Station: normal gait. Cranial Nerves: grossly intact Skin: Inspection and palpation: ; ecchymoses in forearms
[2019-04-30 09:47] VITALS: BP 119/67
--- NOTE | 2019-04-30 12:26 | Operative Report ---
DATE OF PROCEDURE: 04/30/2019 SURGEON: Jean Varela MD PROCEDURE PERFORMED: Colonoscopy. PREOPERATIVE DIAGNOSIS: History of colon polyps. POSTOPERATIVE DIAGNOSIS: Two colon polyps removed from the descending colon, internal hemorrhoids present. PREOPERATIVE MEDICATIONS: Consisted of MAC. PROCEDURE IN DETAIL: Using an Koogame video colonoscope was inserted into the patient's rectum and advanced without difficulty to the level of the cecum. The colon was studied from that level back down to the rectum. In the proximal descending colon, two polyps were found, one that was 5 mm, one that was 4 mm. Both were removed with the hot biopsy forceps. The colonoscope was withdrawn back down to the rectum. No other polypoid lesions or tumor or masses were seen. No diverticula were noted. We did see internal hemorrhoids as we withdrew the colonoscope from the patient's rectum. Jean Varela MD SAF/MODL /[id number]
== END | disposition home or self-care (01) ==
LOC: OR 06:16
PROVIDERS: ATTEND Internal Medicine Gastroenterology
DX: Z09 Encounter for follow-up examination after completed treatment for conditions other than malignant neoplasm (principal); K63.5 Polyp of colon; K59.00 Constipation, unspecified; K64.8 Other hemorrhoids; K21.0 Gastro-esophageal reflux disease with esophagitis; R49.0 Dysphonia; I45.10 Unspecified right bundle-branch block; M19.90 Unspecified osteoarthritis, unspecified site; J45.909 Unspecified asthma, uncomplicated; I10 Essential (primary) hypertension; K44.9 Diaphragmatic hernia without obstruction or gangrene; Z91.048 Other nonmedicinal substance allergy status; Z01.810 Encounter for preprocedural cardiovascular examination; Z01.812 Encounter for preprocedural laboratory examination; Z79.82 Long term (current) use of aspirin; Z85.3 Personal history of malignant neoplasm of breast; Z92.3 Personal history of irradiation; Z92.21 Personal history of antineoplastic chemotherapy; Z83.71 Family history of colonic polyps
CPT/HCPCS: 36415; 45384; 85025; 93005; J2704; J3010; 45378